=== PATIENT | male | born 1990 | race Caucasian/White ===

== ENCOUNTER 2016-12-19 19:54 | Emergency (ER) | payer OTHER ==
[~2016-12-19] VITALS: Ht 185.4 cm; Wt 77.4 kg
[2016-12-19 19:57] VITALS: Ht 185.4 cm; Wt 77.4 kg
[2016-12-19] MEDS ORDERED: MoRPHine SULFATE 10 MG/ML CARP/VIAL IV STA (20:13)
[2016-12-19] MEDS ORDERED: LORAZEPAM 2 MG/ML 1 ML VIAL IV STA (20:13)
[2016-12-19] MEDS ORDERED: KETOROLAC TROMETHAMINE 30 MG/ML VIAL IV STA (20:13)
[2016-12-19] MEDS ORDERED: DEXAMETHASONE INJ 10 MG in SYRINGE 0 ML IV STA (20:13)
--- NOTE | 2016-12-19 20:24 | EMERGENCY ROOM VISIT NOTE ---
History Report prepared by Cody: Zia Marinelli Under the Supervision of: Dr. Iván Gorman M.D. First contact with patient: 20:09 Chief Complaint: BACK PAIN Stated Complaint: LOWER BACK PAIN, DISCS L4 AND L5,WC History of Present Illness The patient is a 26 year old male who presents to the Emergency Room with complaints of worsening back pain that started around 9 days ago. He says that he has a history of disc trouble, and has received 5 injections in the past year , and has been doing well. The patient states that he was released from care a month ago, but 9 days ago, he was at work and his back went out again. He says that he saw his doctor, but the doctor wanted to wait until the patient sees his orthopedic. The patient notes that he saw Dr. Meeks of [facility] yesterday, and Dr. Meeks wanted the patient to get another injection, but did put the patient back to work. The patient says that he went to work today, and he does a lot of hard labor at work, and had a lot of pain. He states that the longer he stood, his legs started to shake and his toes became tingly. He says that he had some pain in his hips. The patient states that currently he can barely walk. He says that in the past he has had leg pain associated with the back pain, but over the past 9 days, his pain has mainly been localized to his back. He rates his pain as a 10 out of 10 in severity. The patient says that he just finished a dose of Prednisone earlier this week, and he has been taking Aleve and a muscle relaxer. Source of History: patient Onset: 9 days ago Position: back Symptom Intensity: 10/10 in severity Timing: worsening Modifying Factors (Worsening): other (standing) Note: Associated symptoms: Legs started to shake, toes became tingly at work earlier today. Can barely walk. Review of Systems See HPI for pertinent positives & negatives. A total of 10 systems reviewed and were otherwise negative. Past Medical & Surgical Medical Problems: (1) Back pain Family History Cancer Seizures Social History Smoking Status: Former Smoker Smokeless Tobacco Use: No Alcohol Use: occasionally Marital Status: Housing Status: lives with family Occupation Status: employed Current/Historical Medications Scheduled PRN Cyclobenzaprine Hcl (Flexeril), 1 TAB PO for Pain Naproxen (Aleve), 220 MG PO Q12 PRN for Pain Allergies Coded Allergies: No Known Allergies (Unverified , 12/19/16) Physical Exam Vital Signs Date Time Temp Pulse Resp B/P (MAP) Pulse Ox O2 Delivery O2 Flow Rate FiO2 12/19/16 20:47 36.8 95 18 126/71 98 Room Air 12/19/16 20:23 111 12/19/16 19:57 36.8 154 18 136/92 98 Room Air Physical Exam GENERAL: Patient is in no acute distress. HEENT: No acute trauma, normocephalic atraumatic, mucous membranes moist, no nasal congestion, no scleral icterus. NECK: No stridor, no adenopathy, no meningismus, trachea is midline. LUNGS: Clear to auscultation bilaterally, no wheeze, no rhonchi, breath sounds equal. HEART: Tachycardic with a regular rhythm. No murmurs. BACK: Pain worsens with any movement. ABDOMEN: Soft, nontender, bowel sounds positive, no hernias, no peritonitis. EXTREMITIES: No cyanosis or edema, full range of motion of all the joints without pain or difficulty, no signs for acute trauma. NEUROLOGIC: Oriented x 3, no acute motor or sensory deficits, no focal weakness. 2/4 patellar and Achilles reflexes bilaterally. SKIN: No rash, no jaundice, no diaphoresis. Medical Decision & Procedures Medications Administered Medications (Trade) Dose Ordered Sig/Jeffy Route Start Time Stop Time Status Last Admin Dose Admin Ketorolac Tromethamine (Toradol Inj) 30 mg NOW STAT IV 12/19/16 20:13 12/19/16 20:19 DC 12/19/16 20:38 30 MG Morphine Sulfate (MoRPHine SULFATE INJ) 6 mg NOW STAT IV 12/19/16 20:13 12/19/16 20:19 DC 12/19/16 20:38 6 MG Lorazepam (Ativan Inj) 1 mg NOW STAT IV 12/19/16 20:13 12/19/16 20:19 DC 12/19/16 20:38 1 MG Dexamethasone Sodium Phosphate (Decadron Inj) 10 mg STK-MED ONCE .ROUTE 12/19/16 20:35 12/19/16 20:36 DC 12/19/16 20:39 10 MG ED Course 2009: The patient was evaluated in room B12B. A complete history and physical exam was performed. 2012: Ordered Ativan Inj 1 mg IV, Dexamethasone Sodium Phosphate 10 mg/Syringe 2.5 ml @ 1 mls/min IV, Morphine Sulfate Inj 6 mg IV, Toradol Inj 30 mg IV. 2134: Reevaluated the patient and he feels better and his pain is tolerable. Discussed results and discharge instructions: he verbalized understanding and agreement. The patient is ready for discharge. 2144: Ordered Roxicodone Immediate Rel 5MG Home Pack 1 homepack PO. Medical Decision Differential diagnosis includes but is not limited to disc disease, acute on chronic pain, neurovascular compromise, nerve impingement, infection, trauma, fracture. The patient presents with increased lower back pain since standing all day at work. He has known back issues and has been seen by pain management and a back rn surgical. The patient denies pain radiation. He has not fallen, there has been no fever. He has had no urinary complaints. He is here for pain control. The patient received IV morphine, IV Ativan, IV Toradol, IV Decadron. He is feeling markedly better. I do think he can be discharged with outpatient follow -up. He will contact his back specialist tomorrow morning. The patient has no evidence for neurovascular compromise. His reflexes are intact in both lower extremities. He was felt safe for discharge home. Medication Reconcilliation Current Medication List: was personally reviewed by me Blood Pressure Screening Patient's blood pressure: Elevated blood pressure Blood pressure disposition: Elevated BP felt to be situational Impression Primary Impression: Lower back pain Scribe Attestation The scribe's documentation has been prepared under my direction and personally reviewed by me in its entirety. I confirm that the note above accurately reflects all work, treatment, procedures, and medical decision making performed by me. Departure Information Dispostion Home / Self-Care Referrals Toni Meeks DO (PCP) Forms HOME CARE DOCUMENTATION FORM, IMPORTANT VISIT INFORMATION, Work Instructions Patient Instructions My [facility] Additional Instructions oxy ir 1-2 tab every 4 hours for pain talk with Dr. Meeks tomorrow about future options rest heat to the back return if worsening no work the rest of this week
[2016-12-19] MEDS ORDERED: DEXAMETHASONE SOD INJ 10 MG/ML VIAL ONE (20:35)
[2016-12-19] MEDS ORDERED: NAPR1TAB9 PO (20:43)
[2016-12-19] MEDS ORDERED: CYCL10TA6 PO (20:43)
[2016-12-19] MEDS ORDERED: OXYCODONE IR HOME PACK PO ONE (21:45)
[2016-12-19 21:59] VITALS: BP 128/80; PULSE 95; TEMP 36.8; O2SAT 98
== END 2016-12-19 22:00 | disposition home or self-care (01) ==
LOC: C.EDB 19:56
DX: M54.5 Low back pain (principal); Z87.891 Personal history of nicotine dependence; Z80.9 Family history of malignant neoplasm, unspecified; Z82.0 Family history of epilepsy and other diseases of the nervous system